=== PATIENT | male | born 1945 | race Hispanic/Latino ===

== ENCOUNTER 2020-02-14 08:52 | Day surgery (SDC) | payer MEDICARE ==
[2020-02-12 13:33] LABS: BASOPHILS % (AUTO) 0.3 % (0.0-5.0); EOSINOPHILS % (AUTO) 1.8 % (0.0-8.0); HEMATOCRIT 39.7 % (42-54); LYMPHOCYTES % (AUTO) 23.7 % (21.0-51.0); MEAN CORPUSCULAR HEMOGLOBIN 24.8 pg (27.0-33.0); MEAN CORPUSCULAR HGB CONC 31.7 g/dL (32.0-36.0); MONOCYTES % (AUTO) 8.2 % (3.0-13.0); NEUTROPHILS % (AUTO) 65.6 % (40.0-77.0); PLATELET COUNT (AUTO) 121 K/uL (130-400); RED BLOOD CELL COUNT(AUTO) 5.09 MIL/uL (4.50-6.20); RED CELL DISTRIBUTION WIDTH 17.2 % (11.0-15.5); WHITE BLOOD COUNT (AUTO) 6.7 K/uL (4.8-10.8)
[2020-02-12 13:36] LABS: CREATININE 0.9 mg/dL (0.5-1.5); POTASSIUM 4.3 mmol/L (3.5-5.1)
[2020-02-12 13:51] LABS: APPEARANCE,URINE Clear (CLEAR); BILIRUBIN,URINE Negative (NEGATIVE); COLOR,URINE Yellow (YELLOW); GLUCOSE, URINE (UA) >=1000 mg/dL (NEGATIVE); KETONES,URINE Negative (NEGATIVE); LEUKOCYTE ESTERASE ,URINE Negative (NEGATIVE); NITRATE,URINE Negative (NEGATIVE); OCCULT BLOOD,URINE Negative (NEGATIVE); PROTEIN,URINE Negative (NEGATIVE); UROBILINOGEN,URINE 0.2 mg/dL (0.2-1.0)
[2020-02-12 13:55] LABS: INR 1.04 (0.85-1.15); PARTIAL THROMBOPLASTIN TIME 26.4 SEC (26.3-35.5); PROTHROMBIN TIME 11.2 SEC (9.6-11.6)
[2020-02-12 14:08] LABS: BACTERIA,URINE Rare /HPF (None Seen); RBC,URINE 0-1 /HPF (0-1); SQUAMOUS EPITHELIAL CELL,UR Rare /HPF (0-2); WBC,URINE 0-1 /HPF (0-1)
--- NOTE | 2020-02-13 11:48 | NUR ---
spoke to Doctor Donald about plt 121, no new orders.
[2020-02-14] VITALS (9 sets, daily range): BP systolic 121–135; BP diastolic 61–71
[~2020-02-14] VITALS: Ht 165.1 cm; Wt 83.9 kg
[~2020-02-14 08:52] MED LIST: ASPI-556 PO; ATOR20TA65 PO; CANA1TAB4 PO; CHOL200013 PO; CLOP75TA14 PO; ESOM40CA54 PO; FURO40TA5 PO; LINA5TAB PO; MELO-108 PO; METO25TA6 PO; NITR0.4T50 SL; OMEG-125 PO; ONDA8TAB65 PO; RANO10003 PO; SIME125C81 PO; SODIUM CHLORIDE 0.9% 500ML 500 ML IV SCH; TAMS0.4C32 PO; VITAMIN B12 PO
[2020-02-14] MEDS ORDERED: CHOL500045 PO (09:50)
[2020-02-14] MEDS ORDERED: LISI2.5T2 PO (09:50)
[2020-02-14] MEDS ORDERED: SUCR1TAB2 PO (09:50)
[2020-02-14] MEDS ORDERED: SODIUM CHLORIDE 0.9% 1000ML 1,000 ML IV ONE (09:52)
--- NOTE | 2020-02-14 10:10 | NUR ---
ASSESSMENT PT HERE FOR PROCEDURE. DENIES ANY CP, SOB AT THIS TIME.
[2020-02-14] MEDS ORDERED: NITROGLYCERIN 2 MG/VIAL VIAL IV ONE (11:53)
[2020-02-14] MEDS ORDERED: LIDOCAINE HCL 2% 20ML ONE (11:53)
[2020-02-14] MEDS ORDERED: HEPARIN SODIUM 1000UNIT/ML 10ML VIAL ONE (11:53)
[2020-02-14] MEDS ORDERED: IOHEXOL-350 50ML VIAL IV ONE (11:54)
[2020-02-14] MEDS ORDERED: IOHEXOL 350 MG/ML 100ML INFUS..BTL IV ONE (11:54)
[2020-02-14] MEDS ORDERED: DEXTROSE 50%-WATER 50 ML DISP.SYRIN IV PRN (13:00)
[2020-02-14] MEDS ORDERED: GLUCAGON 1MG KIT 1 MG ML IM PRN (13:00)
--- NOTE | 2020-02-14 13:05 | NUR ---
PROCEDURE RECEIVED PT FROM RONEN ORTIZ. PT DOING WELL. INSTRUCTED PT ON IMPORTANCE OF NOT MOVING RIGHT LEG AND NOT LIFTING HEAD UP OFF OF BED. PT VERBALIZED UNDERSTANDING. SITE TO RIGHT GROIN SOFT TO TOUCH. NO BLEEDING, SWELLING NOTED TO SITE.
--- NOTE | 2020-02-14 15:10 | NUR ---
DISCHARGE TELEPHONE INSTRUCTIONS GIVEN TO PTS CITLALI LORENZO. VERBALIZED UNDERSTANDING.
--- NOTE | 2020-02-14 16:10 | NUR ---
PATIENT DISCHARGED FROM FACILITY VIA WHEELCHAIR BY NURSE AND ASSISTED INTO PRIVATE VEHICLE DRIVEN BY SON.
== END 2020-02-14 16:10 | disposition home or self-care (01) ==
LOC: DAH 08:52 → UNDOADMOB 08:53 → DAHIP 08:53 → DAH 08:53
PROVIDERS: ATTEND Internal Medicine Cardiovascular Disease
DX: I25.119 Atherosclerotic heart disease of native coronary artery with unspecified angina pectoris (principal); I25.729 Atherosclerosis of autologous artery coronary artery bypass graft(s) with unspecified angina pectoris; I25.82 Chronic total occlusion of coronary artery; I10 Essential (primary) hypertension; E78.5 Hyperlipidemia, unspecified; E11.9 Type 2 diabetes mellitus without complications; I65.23 Occlusion and stenosis of bilateral carotid arteries; I25.2 Old myocardial infarction; Z79.899 Other long term (current) drug therapy; Z79.82 Long term (current) use of aspirin; Z95.1 Presence of aortocoronary bypass graft; Z98.890 Other specified postprocedural states
CPT/HCPCS: 36415; 71045; 80048; 81001; 82948 ×2; 85025; 85610; 85730; 93005; 93459; A4215; A4216; A4221; A4222; A4223 ×3; A4606; A4663; C1760; C1894; J1644; J3490 ×2; J7030; Q9965; Q9967 ×2

== ENCOUNTER → 2022-07-29 | Outpatient (CLI) | payer OTHER, MEDICARE ==
[~2022-07-29] MED LIST changes: -CHOL200013 PO; +CHOL500045 PO; +CLOP-31 PO; -CLOP75TA14 PO; +LISI2.5T13 PO; -ONDA8TAB65 PO; -SIME125C81 PO; -SODIUM CHLORIDE 0.9% 500ML 500 ML IV SCH; +SUCR1TAB2 PO
== END | disposition home or self-care (01) ==
LOC: RAH 14:20
PROVIDERS: ATTEND Internal Medicine Cardiovascular Disease
DX: J44.9 Chronic obstructive pulmonary disease, unspecified (principal); R07.9 Chest pain, unspecified; I25.10 Atherosclerotic heart disease of native coronary artery without angina pectoris; K44.9 Diaphragmatic hernia without obstruction or gangrene; M47.815 Spondylosis without myelopathy or radiculopathy, thoracolumbar region; Z90.49 Acquired absence of other specified parts of digestive tract
CPT/HCPCS: 71250

== ENCOUNTER → 2023-11-18 | Outpatient (CLI) | payer OTHER, MEDICARE ==
[~2023-11-18] MED LIST changes: -ATOR20TA65 PO; +BACL5TAB PO; -CLOP-31 PO; -ESOM40CA54 PO; +IOHEXOL 350 MG/ML 100ML INFUS..BTL IV ONE; -MELO-108 PO; +METOPROLOL TARTRATE 1 MG/ML 5ML VIAL IV ONE; +PANT40TA PO; +PRAV40TA3 PO; +SEMA0.258 SQ; -TAMS0.4C32 PO
== END | disposition home or self-care (01) ==
LOC: RAH 10:26
PROVIDERS: ATTEND Internal Medicine Cardiovascular Disease
DX: R07.9 Chest pain, unspecified (principal); I25.10 Atherosclerotic heart disease of native coronary artery without angina pectoris
CPT/HCPCS: 75574; J3490; Q9967